=== PATIENT | female | born 1990 | race Caucasian/White ===

== ENCOUNTER 2016-06-28 09:53 | Inpatient (IN) | payer OTHER ==
--- NOTE | ~2016-06-28 | PN ---
Unit #: [id number] #: [id number] Patient: EMILY IMLLAN [id number] [facility] [address] [place] [address] [id number] MR#: [id number] NAME: EMILY MILLAN ROOM: P132 Age: 25 Sex: F Admission Date: 06/28/2016 : 1990 Attending Physician: Jose Angel Jackson M.D. Admitting Physician: Jose Angel Jackson M.D. Primary Care Physician: Generic Doctor Not In System [facility] PROGRESS NOTES DATE 06/30/2016 DISCUSSION Ms. Welsh is a 25-year-old female seen on 06/30/2016. Patient interviewed. Chart reviewed. Obtained information from nursing staff. Patient reported feeling sad, depressed, anxious, nervous about not able to get into the program. Patient denied any thoughts of harming self or others but reported having those thoughts earlier. Complete review of system unremarkable. MENTAL STATUS EXAMINATION General appearance, patient dressed casually. Attention span, concentration fair. Oriented in place and person. Mood and affect sad, dysphoric. Speech regular rate. Thought process goal-directed. Patient denied any thoughts of harming self or others or any psychotic symptoms. Recent and remote memory poor. Insight and judgement poor. DIAGNOSES 1. Mood disorder NOS. 2. Opiate use disorder. ASSESSMENT/PLAN Advised to discharge patient tomorrow to [facility]. Patient accepted and start program from 07/01. In the meantime, closely monitor patient's mood and behavior for safety. Dictated by... Casey Wen/roberto TD: 07/01/2016 22:38 JOB #: [id number] Unit #: [id number] #: [id number] Patient: EMILY MILLAN [facility] PROGRESS NOTES X Jose Angel Jackson MD PROGRESS NOTE
--- NOTE | ~2016-06-28 | PN ---
Unit #: [id number] #: [id number] Patient: EMILY MILLAN [id number] [facility] [address] [place] [address] [id number] MR#: [id number] NAME: EMILY MILLAN ROOM: 32 Age: 25 Sex: F Admission Date: 06/28/2016 : 1990 Attending Physician: Jose Angel Jackson M.D. Admitting Physician: Jose Angel Jackson M.D. Primary Care Physician: Generic Doctor Not In System [facility] PROGRESS NOTES DATE OF SERVICE: 06/29/2016 DISCUSSION Ms. Welsh is a 25-year-old female, seen on 06/29/2016. The patient interviewed, chart reviewed, and obtained information from nursing staff. The patient was compliant and cooperative. Mood was sad, dysphoric, flat affect, guarded. The patient reports making progress. No side effects from medication. Complete review of systems unremarkable. MENTAL STATUS EXAMINATION General appearance, the patient dressed casually. Attention span and concentration, fair. Oriented in place and person. Mood and affect, sad and dysphoric. Speech, monotone. Thought process, concrete. The patient denied any thoughts of harming self or others or any psychotic symptom. Recent and remote memory, poor. Insight and judgment, poor. DIAGNOSES 1. Mood disorder, not otherwise specified. 2. History of opioid use disorder, severe. ASSESSMENT AND PLAN Advised to continue with current medication and therapeutic protocol. We will monitor response to medication and make further adjustment of medication. If needed, consider further adjustment of medication. Dictated by... aCsey Wen/nehemias TD: 06/29/2016 20:26 JOB #: [id number] Unit #: [id number] #: [id number] Patient: EMILY MILLAN PROGRESS NOTES X Jose Angel Jackson MD PROGRESS NOTE
--- NOTE | ~2016-06-28 | DS ---
Unit #: [id number] #: [id number] Patient: EMILY MILLAN [id number] [place] [address] [id number] MR#: [id number] NAME: EMILY MILLAN ROOM: 32 Age: 25 Sex: F Admission Date: 06/28/2016 : 1990 Discharge Date: 07/01/2016 Attending Physician: Jose Angel Jackson M.D. Primary Care Physician: Generic Doctor Not In System DISCHARGE SUMMARY REASON FOR ADMISSION Depression. DIAGNOSTIC STUDIES LABORATORY RESULTS: Remarkable for BUN 8, total protein 5.8, albumin 3.6. HOSPITAL COURSE The patient was admitted to the inpatient unit on 06/28/2016 and discharged on 07/01/2016. The patient was treated on the inpatient unit with group therapy, individual therapy, medication management, expressive therapy, and structured milieu. The patient was responsive to treatment, showed improvement. The patient did not show any side effects from medication. The patient was subsequently discharged with a plan to follow up in outpatient program. DISCHARGE MEDICATIONS Trazodone 50 mg at bedtime for sleep, Vistaril 25 mg t.i.d. for anxiety, and Celexa 20 mg daily for mood stabilization. DISCHARGE DIAGNOSES Psychiatric: Mood disorder, not otherwise specified, F32.9; opioid use disorder, moderate, F11.20; amphetamine use disorder, severe, F15.20. Secondary diagnosis: Deferred. Medical diagnosis: None. Stressors: Psychosocial stressors. DISCHARGE INSTRUCTIONS The patient to follow up in outpatient clinic as per social economist. CONDITION ON DISCHARGE The patient was pleasant and cooperative. Denied any psychotic symptom or any suicidal ideation. PROGNOSIS Guarded. DIET AND ACTIVITY As tolerated. Unit #: [id number] #: [id number] Patient: EMILY MILLAN Dictated by... Casey Wen/olliel TD: 07/03/2016 01:42 JOB #: [id number] DISCHARGE SUMMARY X Jose Angel Jackson MD X DISCHARGE SUMMARY
--- NOTE | ~2016-06-28 | PA ---
Unit #: [id number] #: [id number] Patient: EMILY MILLAN [id number] [facility] [address] [place] [address] [id number] MR#: [id number] NAME: EMILY MILLAN ROOM: P132 Age: 25 Sex: F Admission Date: 06/28/2016 : 1990 Date of Assessment: 06/28/2016 Attending Physician: Jose Angel Jackson M.D. Admitting Physician: Jose Angel Jackson M.D. Primary Care Physician: Generic Doctor Not In System PSYCHIATRIC ASSESSMENT DATE OF SERVICE 06/28/2016. INFORMANTS The patient reliability, fair; chart reliability, good. CHIEF COMPLAINT Depression. HISTORY OF PRESENT ILLNESS Ms. Welsh is a 25-year-old female, seen on 06/28/2016. The patient interviewed, chart reviewed, and obtained information from nursing staff. The patient reported that she was having crying spell, feeling sad and depressed without her medication. The patient reported that [facility] sent her in a cab to the emergency room. The patient was evaluated and subsequently admitted to [facility] due to increase in depression. The patient reported that she was there at [facility] for 5 days. The patient reported last use of drugs was 2 weeks ago. The patient reported that she is needed to go back on her medication; unable to contract for safety; feeling of hopelessness and worthlessness, sad, depressed, but denied any psychotic symptom or any thoughts of harming others, but having suicidal ideation, no plans. The patient needed inpatient admission at this time for psychiatric stabilization. PAST PSYCHIATRIC HISTORY Remarkable for history of previous treatment. Multiple inpatient at [facility], [facility], [facility], [facility], and [facility] in [place] as an inpatient at age 18 for depression. FAMILY HISTORY AND SOCIAL HISTORY The patient has a poor support system. No known history of any abuse. The patient reported history of substance abuse and depression in mother and father, bipolar disorder in the family. MEDICAL HISTORY Unremarkable for any chronic medical illness. Musculoskeletal; muscle strength and tone, no atrophy or abnormal movement. Gait normal. MEDICATION HISTORY None. ALLERGIES No known drug allergies. Unit #: [id number] #: [id number] Patient: EMILY MILLAN SUBSTANCE ABUSE HISTORY The patient reported tobacco use, age of onset 12; alcohol, age of onset 12; marijuana, age of onset 12; LSD, age of onset 17; opioid, age of onset 25; amphetamine, age of onset 23; and prescription medication, age of onset 20. The patient reported history of blackouts. No history of any withdrawal symptom, but history of IV drug use in the past. REVIEW OF SYSTEMS HEENT: Eyes, clear. Ears, nose, mouth, and throat; clear. CARDIOVASCULAR: Unremarkable. RESPIRATORY: Unremarkable. GI: Unremarkable. unremarkable. SKIN: Unremarkable. LYMPH NODE: Unremarkable. NEUROLOGIC: Unremarkable. ENDOCRINE: Unremarkable. HEMATOLOGIC: Unremarkable. ALLERGIC/IMMUNOLOGIC: Unremarkable. MUSCULOSKELETAL: Muscle strength and tone, no atrophy or abnormal movement. Gait normal. MENTAL STATUS EXAMINATION CONSTITUTIONAL: Measurement of vital signs; temperature 98.0, pulse 100, respirations 20, and blood pressure 136/82. Height 5 feet 4 inches and weight 262 pounds. GENERAL APPEARANCE: The patient dressed casually. The patient did not show any facial deformity. MUSCULOSKELETAL: Please see above. PSYCHIATRIC EXAMINATION Description of speech; regular rate, normal volume, normal articulation, coherent, spontaneous. Description of thought process, goal directed. Description of association, intact. Description of abnormal psychotic thinking; the patient denied any hallucinations or delusions, but mood lability, sad, depressed, history of substance abuse. Description of the patient's judgment: Concerning everyday activity, poor. Social situation, poor. Concerning psychiatric condition, poor. Complete mental status examination; oriented in time, place, and person. Recent and remote memory, fair. Attention span and concentration, fair. Language; able to name object, repeat phrases. Fund of knowledge; aware of current event, passive vocabulary intact. Mood and affect, sad and dysphoric. Insight and judgment were fair to poor. ASSETS AND LIABILITIES Assets, the patient is articulate. Liabilities; history of substance abuse, depression. ADMITTING DIAGNOSES Psychiatric: 1. Mood disorder, not otherwise specified, F32.9. 2. Opioid use disorder, F11.20. 3. Amphetamine use disorder, severe, F15.20. Secondary diagnosis: Deferred. Medical diagnosis: None. Unit #: [id number] #: [id number] Patient: EMILY MILLAN Stressors: Psychosocial stressors. PSYCHIATRIC PLAN, TREATMENT GOAL, AND DISCHARGE PLAN 1. Advised to admit the patient on the inpatient unit. Provide safe, supportive, and structured environment. 2. Ordered labs; CBC, CMP, UA, UDS, and test. 3. The patient is to attend all the programing on the inpatient unit, group therapy, individual therapy, and medication management. Advised to start the patient on a combination of Celexa, Vistaril, and Desyrel for depression, anxiety, and sleep. We will closely monitor. If needed, consider further adjustment of medication. 4. Treatment goal is to attain euthymic mood, gain insight into her problem, and learn coping skills. 5. Discharge plan: Plan is to stabilize the patient and consider followup in outpatient program. ESTIMATED LENGTH OF STAY 2 to 4 days. Dictated by... Jose Angel Jackson M.D. SEPIDEH/nehemias TD: 06/28/2016 22:34 JOB #: [id number] PSYCHIATRIC ASSESSMENT X Jose Angel Jackson MD X PSYCHIATRIC ASSESSMENT
--- NOTE | ~2016-06-28 | HP ---
Unit #: [id number] #: [id number] Patient: EMILY MILLAN [id number] [place] [address] [id number] MR#: [id number] NAME: EMILY MILLAN ROOM: P132 Age: 25 Sex: F Admission Date: 06/28/2016 : 1990 Attending Physician: Jose Angel Jackson M.D. Admitting Physician: Jose Angel Jackson M.D. Primary Care Physician: Generic Doctor Not In System HISTORY AND PHYSICAL HISTORY OF PRESENT ILLNESS Emily is a 25 year old admitted to [address] [place] [address] with depression and verbalizing wanting to hurt herself. PAST MEDICAL HISTORY Morbid obesity. PAST SURGICAL HISTORY 1. Cholecystectomy 2. Appendectomy ALLERGIES Penicillin, sulfa. SOCIAL HISTORY Smokes one-half pack per day. Drinks alcohol rarely. Admits to a long history of illicit substance abuse to include IV heroin, methamphetamine and pain pills. FAMILY HISTORY Medically noncontributory. REVIEW OF SYSTEMS CONSTITUTIONAL: No fever or chills. HEENT: Denies any sore throat, ear pain or runny nose. CARDIOVASCULAR: Denies chest pain, irregular heart rhythm or palpitations. CHEST: Denies shortness of breath or cough. No hemoptysis. GASTROINTESTINAL: Denies nausea, vomiting, diarrhea or chronic constipation. ENDOCRINE: Denies history of increased thirst or urination. No recent significant weight loss or gain. GENITOURINARY: Denies dysuria, frequency, or hematuria. SKIN: Denies any rashes. HEMATOLOGIC: Denies history of increased bleeding or bruising. MUSCULOSKELETAL: Denies any hot, swollen joints. No generalized muscle pain. NEUROLOGIC: Denies problems with vision or speech. No frequent, severe headaches. No numbness, tingling or weakness in any extremities. Denies loss of bladder or bowel control. CURRENT MEDICATIONS 1. Desyrel 50 mg q.h.s. Unit #: [id number] #: [id number] Patient: EMILY MILLAN 2. Vistaril 25 mg t.i.d. 3. Celexa 20 mg daily 4. Trazodone 75 mg q.h.s. p.r.n. 5. Milk of Magnesia p.r.n. 6. Maalox p.r.n. 7. Tylenol p.r.n. 8. Nicotine patch 7 mg daily PHYSICAL EXAMINATION GENERAL: Alert, well-nourished, in no apparent distress. VITAL SIGNS: Blood pressure 136/82, heart rate 100, respirations 16, temperature 98.6. WEIGHT: 262 pounds. HEIGHT: 5'4". SKIN: Warm and dry without rash or lesion. HEENT: Normocephalic. TMs not viewed. Oral and nasal passages clear. Conjunctivae clear. Pupils equal, round and reactive to light and accommodation. Extraocular movements intact. NECK: Supple without lymphadenopathy or thyromegaly. HEART: Regular rate and rhythm without murmur. LUNGS: Clear. ABDOMEN: Soft, nontender. : Not done. EXTREMITIES: No evidence of cyanosis, clubbing or edema. Moves all extremities without focal deficit. NEUROLOGICAL: Grossly within normal limits. Cranial Nerves: II: Visual garcia are intact. III, IV AND : Extraocular movements are intact. Pupils are equal, round and reactive to light. V: Facial sensation is grossly normal. VII: Facial movements and expression are normal. VIII: Auditory acuity grossly intact. IX, X: Uvula is midline. Phonation is normal. XI: Patient shrugs shoulders and turns head normally. XII: Tongue protrudes in the midline. Sensory and Motor Function: Sensory and motor sensation is grossly normal. Motor: moves all extremities well. Coordination: Gait is normal. Deep Tendon Reflexes: Intact. IMPRESSION Psychiatric admission RECOMMENDATIONS PSYCHIATRIC: Per psychiatrist. MEDICAL: I see no contraindications to participating in facility's activities. MEDICAL PROGNOSIS Good. MEDICAL CONDITION Stable. Dictated by... Shell Angel P.A.-C. for Unit #: [id number] #: [id number] Patient: EMILY MILLAN Casey Godoy/sly TD: 06/29/2016 00:19 JOB #: [id number] HISTORY AND PHYSICAL X Shell Angel HISTORY AND PHYSICAL
[2016-06-29 09:43] LABS: BASOPHIL% 0.5 % (0-2.5); EOSINOPHIL# 0.2 X10e3 (0-0.7); EOSINOPHIL% 2.9 % (0.0-7.0); HEMATOCRIT 37.7 % (35.0-45.0); HEMOGLOBIN 12.2 gm/dL (12.0-16.0); LYMPHOCYTE# 1.7 X10e3 (1.0-3.5); LYMPHOCYTE% 21.1 % (17.0-45.0); MEAN CELL VOLUME 84.9 FL (83-96); MEAN CORPUSCULAR HEMOGLOBIN 27.6 PG (28-34); MEAN CORPUSCULAR HGB CONC 32.5 g/dL (30-36); MEAN PLATELET VOLUME 8.3 FL (6.5-11.5); MONOCYTE# 0.6 X10e3 (0-1.0); MONOCYTE% 6.9 % (3.0-12.0); NEUTROPHIL# 5.6 X10e3 (1.5-7.1); NEUTROPHIL% 68.6 % (40-75); PLATELET COUNT 314 X10e3 (140-420); RED BLOOD COUNT 4.43 X10e (3.90-5.30); RED CELL DISTRIBUTION WIDTH 15.3 % (11.0-15.5); WHITE BLOOD COUNT 8.2 X10e3 (4.0-10.5)
[2016-06-29 09:44] LABS: DIFF IND NO
[2016-06-29 10:06] LABS: THYROID STIMULATING HORMONE 0.86 uIU/ml (0.34-5.60)
[2016-06-29 10:16] LABS: FREE THYROXIN (T4) 0.74 ng/dL (0.58-1.64)
[2016-06-29 10:20] LABS: ALBUMIN SERUM 3.1 g/dL (3.5-5.0); ALKALINE PHOSPHATASE 74 U/L (32-92); ALT (SGPT) 45 U/L (10-40); AST (SGOT) 19 U/L (10-42); BILIRUBIN,TOTAL 0.3 mg/dL (0.2-2.0); BLOOD UREA NITROGEN 8 mg/dL (9-23); BUN/CREATININE RATIO 8.88; CALCIUM SERUM 9.1 mg/dL (8.4-10.2); CARBON DIOXIDE 26 mmol/L (22-31); CHLORIDE 106 mmol/L (100-111); CREATININE SERUM 0.9 mg/dL (0.6-1.4); GLOM FILT RATE Estimated ABOVE60 mL/min (>60); GLUCOSE FASTING 88 mg/dL (70-110); POTASSIUM 4.9 mmol/L (3.5-5.1); PROTEIN TOTAL SERUM 5.8 g/dL (6.0-8.3); SODIUM 142 mmol/L (135-145)
== END 2016-07-01 11:41 | disposition home or self-care (01) | DRG 885 ==
LOC: P1S 09:53
PROVIDERS: Psychiatry & Neurology Psychiatry
DX: F39 Unspecified mood [affective] disorder (principal); F11.20 Opioid dependence, uncomplicated; Z88.0 Allergy status to penicillin; Z88.2 Allergy status to sulfonamides; F17.200 Nicotine dependence, unspecified, uncomplicated; E66.01 Morbid (severe) obesity due to excess calories
CPT/HCPCS: 80053; 84439; 84443; 84703; 85025